=== PATIENT | female | born 1950 | race Caucasian/White ===

== ENCOUNTER → 2022-05-10 17:04 | Outpatient (CLI) | payer MEDICARE, OTHER, SELFPAY ==
--- NOTE | 2022-05-10 17:21 | DI.US.S_ITS ---
PROCEDURE: US SOFT TISSUE HEAD AND NECK INDICATIONS: HISTORY OF MELANOMA TECHNIQUE: Real-time scanning was performed of the neck region of interest, with image documentation. COMPARISON: None. FINDINGS: At the area of palpable lump on the forehead there is a 1.2 x 0.9 x 1.1 centimeter lesion likely skin based. There is internal vascularity with power Doppler. Small partial cystic component. IMPRESSION: Solid cystic mass at the location of palpable lump on the forehead, likely skin based, and with internal vascularity. Consider sampling and/or follow-up imaging given history of melanoma. Dictated by: Carlos Gongora M.D. on 05/11/2022 at 9:07 Approved by: Carlos Gongora M.D. on 05/11/2022 at 9:08
== END ==
PROVIDERS: Referring Provider Dermatology; Visit Provider Dermatology
DX: D48.5 Neoplasm of uncertain behavior of skin (principal); D23.4 Other benign neoplasm of skin of scalp and neck; Z85.820 Personal history of malignant melanoma of skin
CPT/HCPCS: 76536